=== PATIENT | male | born 1960 | race Two or more races ===

== ENCOUNTER 2021-03-27 18:57 | Emergency (ER) | payer MEDICAID ==
[~2021-03-27] VITALS: Ht 170.2 cm; Wt 75.9 kg
[2021-03-27] MEDS ORDERED: IBUP-2759 PO (19:28)
[2021-03-27] MEDS ORDERED: LIDOCAINE 1% 10 ML VIAL SQ ONE (21:15)
[2021-03-27] MEDS ORDERED: POVIDONE-IODINE 10% 15 ML SOLUTION UD TP ONE (21:15)
[2021-03-27] MEDS ORDERED: OxyCODONE HCL/ACETAMINOPHEN 5-325 MG TABLET PO ONE (21:15)
[2021-03-27] MEDS ORDERED: DOXYCYCLINE HYCLATE 100 MG TABLET PO ONE (21:15)
[2021-03-27 22:00] VITALS: BP 126/76
== END 2021-03-27 23:00 | disposition home or self-care (01) ==
LOC: EMS 19:00
DX: L02.31 Cutaneous abscess of buttock (principal)
CPT/HCPCS: 10060; 99283; J3490

== ENCOUNTER 2021-04-07 18:19 | Emergency (ER) | payer MEDICAID ==
[~2021-04-07] VITALS: Ht 172.7 cm; Wt 76.0 kg
[~2021-04-07 18:19] MED LIST: IBUP-2759 PO
[2021-04-07 19:16] VITALS: BP 120/72
== END 2021-04-07 19:41 | disposition left against medical advice (07) ==
LOC: EMS 18:28
DX: L02.31 Cutaneous abscess of buttock (principal); Z53.21 Procedure and treatment not carried out due to patient leaving prior to being seen by health care provider